=== PATIENT | female | born 1985 | race Caucasian/White ===

== ENCOUNTER 2017-05-05 18:04 | Emergency (ER) | payer BC ==
[~2017-05-05] VITALS: Ht 152.4 cm; Wt 60.0 kg
[~2017-05-05 18:04] MED LIST: FLUO20CA35 PO; FLUO40CA8 PO; MEDR150I IM; ONDA4TAB7 SL; PRAZ2CAP3 PO; SULF-183 PO
[2017-05-05 18:14] VITALS: TEMP 36.8; Ht 152.4 cm; Wt 60.0 kg
[2017-05-05] MEDS ORDERED: LEVOTAB6 PO (18:41)
[2017-05-05] MEDS ORDERED: AMPH30CA3 PO (18:41)
[2017-05-05] MEDS ORDERED: VENL75CA PO (18:41)
[2017-05-05] MEDS ORDERED: AMPH10TA2 PO (18:41)
[2017-05-05 18:44] LABS: BASO % 0.3 %; BASO ABS # 0.02 K/uL (0-0.2); COMPLETE YES; EOS % 1.1 %; HEMATOCRIT 37.8 % (37-47); IG% 0.2 %; LYMPH % 34.3 %; MEAN CELL VOLUME 87.3 fL (80-100); MEAN CORPUSCULAR HEMOGLOBIN 31.2 pg (25-34); MEAN CORPUSCULAR HGB CONC 35.7 g/dl (32-36); MEAN PLATELET VOLUME 9.1 fL (7.4-10.4); MONO % 8.1 %; PLATELET COUNT 255 K/uL (130-400); RED BLOOD COUNT 4.33 M/uL (4.2-5.4); WHITE BLOOD COUNT 6.42 K/uL (4.8-10.8)
--- NOTE | 2017-05-05 18:49 | EMERGENCY ROOM VISIT NOTE ---
History Report prepared by Melissa: Aldo Ferguson Under the Supervision of: Dr. Chidi Rasheed M.D. First contact with patient: 18:16 Chief Complaint: LEG PAIN,LEG INJURY Stated Complaint: BRUISE L LEG, PAIN ABOVE,BELOW W KNOT History of Present Illness The patient is a 32 year old female who presents to the Emergency Room with complaints of constant left leg pain for the past three days. The patient states that she got a bruise on her leg after getting a Yosef horse. The patient denies any trauma. She states that she has had Yosef horses in the past, but she has never had a bruise. The patient denies any foot pain, chest pain, shortness of breath, fevers, chills, abdominal pain, headache, and being . 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 She states that her last period was in February. Source of History: patient Onset: two days ago Position: leg (left) Quality: other (brusing) Timing: constant Associated Symptoms: No fevers, No chills, No headache, No chest pain, No SOB, No abdominal pain Review of Systems See HPI for pertinent positives & negatives. A total of 10 systems reviewed and were otherwise negative. Past Medical & Surgical Medical Problems: (1) [place] Teeth Removal Old medical records were reviewed. Nurse's notes were reviewed and I agree with. Family History Diabetes mellitus FH: cancer FH: gallbladder disease FH: lung disease Hypertension Kidney disease Kidney stones Social History Smoking Status: Current Every Day Smoker Alcohol Use: occasionally Marital Status: single Housing Status: lives with family Occupation Status: unemployed Current/Historical Medications Scheduled Amphetamine-Dextroamphetamine 10MG (Adderall 10MG), 10 MG PO QAM Amphetamine-Dextroamphetamine 30MG (Adderall Xr 30MG), 30 MG PO QAM Levonorgestrel-Ethinyl Estradi (Seasonique), 1 TAB PO DAILY Venlafaxine Hcl (Effexor Xr), 75 MG PO QAM Allergies Coded Allergies: No Known Allergies (Unverified , 09/23/11) Physical Exam Vital Signs Date Time Temp Pulse Resp B/P (MAP) Pulse Ox O2 Delivery O2 Flow Rate FiO2 05/05/17 18:14 36.8 98 16 142/89 100 Room Air Physical Exam General: Non-ill appearing young female in no acute distress. HEENT: Normal cephalic atraumatic. Pupils are equal round and reactive to light. Extraocular movements are intact. Oropharynx is pink with moist mucous membranes. No swelling of the mouth lips or tongue. Neck: Supple with a midline trachea. No meningeal signs or stiffness, no JVD or bruits. No Stridor. Chest: Clear to auscultation bilaterally. No wheezes or rhonchi. No increased work of breathing. Heart: regular rate and rhythm. Abdomen: Soft nontender, nondistended without rebound guarding or rigidity. Extremities: Left lower extremity has a bruise with some mild fullness centrally. No redness or warmth. Bruise is on the posterior leg just below the popliteal fossa. Neuro and vascularly intact in the foot. No cyanosis clubbing or edema. No calf tenderness or assymetry. Spine/Back. Non tender to palpation. No CVA tenderness Skin: Good turgor without rashes. Neurologic exam: Cranial nerves two through 12 are intact. Motor and sensation are intact and symmetrical throughout. Medical Decision & Procedures ER Provider Diagnostic Interpretation: Radiology results as stated below per my review and radiologist interpretation: ULTRASOUND LEFT LOWER EXTREMITY VENOUS CLINICAL HISTORY: Left leg pain and bruising. COMPARISON STUDY: No priors. TECHNIQUE: Real-time, grayscale, and color Doppler sonography of the deep veins of the left lower extremity was performed from the inguinal crease to the calf. Compression and augmentation were utilized. FINDINGS: There is no sonographic evidence of deep venous thrombosis identified in the left lower extremity. The common femoral, superficial femoral, and popliteal veins are patent and normally compressible. The greater saphenous vein and the profunda femoris vein at the junction with the common femoral vein are clear. The visualized calf veins are patent. IMPRESSION: There is no sonographic evidence of deep venous thrombosis identified in the left lower extremity. Electronically signed by: Nicolas Carey M.D. 05/05/2017 7:07 PM Dictated Date/Time: 05/05/2017 7:05 PM Laboratory Results 05/05/17 18:30 Red Blood Count 4.33, Mean Corpuscular Volume 87.3, Mean Corpuscular Hemoglobin 31.2, Mean Corpuscular Hemoglobin Concent 35.7, Mean Platelet Volume 9.1, Neutrophils (%) (Auto) 56.0, Lymphocytes (%) (Auto) 34.3, Monocytes (%) (Auto) 8.1, Eosinophils (%) (Auto) 1.1, Basophils (%) (Auto) 0.3, Neutrophils # (Auto) 3.60, Lymphocytes # (Auto) 2.20, Monocytes # (Auto) 0.52, Eosinophils # (Auto) 0.07, Basophils # (Auto) 0.02 05/05/17 18:30 Test 05/05/17 18:30 White Blood Count 6.42 K/uL (4.8-10.8) Red Blood Count 4.33 M/uL (4.2-5.4) Hemoglobin 13.5 g/dL (12.0-16.0) Hematocrit 37.8 % (37-47) Mean Corpuscular Volume 87.3 fL (80-100) Mean Corpuscular Hemoglobin 31.2 pg (25-34) Mean Corpuscular Hemoglobin Concent 35.7 g/dl (32-36) Platelet Count 255 K/uL (130-400) Mean Platelet Volume 9.1 fL (7.4-10.4) Neutrophils (%) (Auto) 56.0 % Lymphocytes (%) (Auto) 34.3 % Monocytes (%) (Auto) 8.1 % Eosinophils (%) (Auto) 1.1 % Basophils (%) (Auto) 0.3 % Neutrophils # (Auto) 3.60 K/uL (1.4-6.5) Lymphocytes # (Auto) 2.20 K/uL (1.2-3.4) Monocytes # (Auto) 0.52 K/uL (0.11-0.59) Eosinophils # (Auto) 0.07 K/uL (0-0.5) Basophils # (Auto) 0.02 K/uL (0-0.2) RDW Standard Deviation 40.7 fL (36.4-46.3) RDW Coefficient of Variation 12.6 % (11.5-14.5) Immature Granulocyte % (Auto) 0.2 % Immature Granulocyte # (Auto) 0.01 K/uL (0.00-0.02) Anion Gap 5.0 mmol/L (3-11) Est Creatinine Clear Calc Drug Dose 111.7 ml/min Estimated GFR () 140.4 Estimated GFR (Non- 121.1 BUN/Creatinine Ratio 10.7 (10-20) Calcium Level 8.5 mg/dl (8.5-10.1) Laboratory studies as stated above per my review. ED Course 1815: Past medical records reviewed. The patient was evaluated in room D6, and a complete history and physical examination were performed. 1914: Upon reevaluation, the patient is feeling well. I discussed the results and treatment plan with her. She verbalized agreement of the treatment plan. The patient was discharged home. Medical Decision Differentials include, but are not limited to; DVT, infection, and bruise. This patient comes in as described above. She was placed in room B6. She is having a bruise in her left posterior leg just below the popliteal fossa. This occurred after having a charley horse a few days ago. There is some palpable induration. They is no redness or warmth and the joint itself does not appear to be infected. She is neurologically and neurovascularly intact. Blood work was obtained and I also obtained an ultrasound. She has no chest pain or shortness of breath. She was reassessed frequently. She has no fever or white count to suggest infection. She has no acute electrolyte or metabolic abnormalities. Ultrasound shows no evidence of DVT. She has no evidence of compartment syndrome or cellulitis. It appears to be more of a bruise. She is to use ibuprofen and ice and return if: increasing pain or swelling, worsening symptoms, numbness or weakness, any new problems or concerns. She was happy with plan and discharged to home. Medication Reconcilliation Current Medication List: was personally reviewed by me Blood Pressure Screening Patient's blood pressure: Elevated blood pressure Blood pressure disposition: Elevated BP felt to be situational Impression Primary Impression: Leg pain Additional Impression: Superficial bruising of lower leg Scribe Attestation The scribe's documentation has been prepared under my direction and personally reviewed by me in its entirety. I confirm that the note above accurately reflects all work, treatment, procedures, and medical decision making performed by me. Departure Information Dispostion Home / Self-Care Referrals Wilbur Hidalgo D.O. (PCP) Forms HOME CARE DOCUMENTATION FORM, IMPORTANT VISIT INFORMATION Patient Instructions My [facility] Additional Instructions Rest. Return if: Increasing pain or swelling, numbness weakness, worsening of symptoms , any new problems or concerns Use ibuprofen 400 mg every 6 hours if needed for pain. Follow-up with your doctor this week if not better Problem Qualifiers
[2017-05-05 19:03] LABS: BUN/CREATININE RATIO 10.7 (10-20); CALCIUM 8.5 mg/dl (8.5-10.1); CREATININE 0.58 mg/dl (0.60-1.20); POTASSIUM 3.8 mmol/L (3.5-5.1)
--- NOTE | 2017-05-05 19:09 | DIAGNOSTIC IMAGING REPORT ---
ULTRASOUND LEFT LOWER EXTREMITY VENOUS CLINICAL HISTORY: Left leg pain and bruising. COMPARISON STUDY: No priors. TECHNIQUE: Real-time, grayscale, and color Doppler sonography of the deep veins of the left lower extremity was performed from the inguinal crease to the calf. Compression and augmentation were utilized. FINDINGS: There is no sonographic evidence of deep venous thrombosis identified in the left lower extremity. The common femoral, superficial femoral, and popliteal veins are patent and normally compressible. The greater saphenous vein and the profunda femoris vein at the junction with the common femoral vein are clear. The visualized calf veins are patent. IMPRESSION: There is no sonographic evidence of deep venous thrombosis identified in the left lower extremity. Electronically signed by: Nicolas Carey M.D. 05/05/2017 7:07 PM Dictated Date/Time: 05/05/2017 7:05 PM
[2017-05-05 19:24] LABS: PREG INTERNAL NEGATIVE QC NEG CLEAR BACKGROUND; PREG INTERNAL POSITIVE QC POS CONTROL LINE
[2017-05-05 19:31] VITALS: BP 128/76; PULSE 72; O2SAT 98
== END 2017-05-05 19:32 | disposition home or self-care (01) ==
LOC: C.EDB 18:05 → C.EDD 19:32
DX: M79.605 Pain in left leg (principal); R23.3 Spontaneous ecchymoses; F17.210 Nicotine dependence, cigarettes, uncomplicated; Z79.899 Other long term (current) drug therapy; Z83.3 Family history of diabetes mellitus; Z80.9 Family history of malignant neoplasm, unspecified; Z83.79 Family history of other diseases of the digestive system; Z83.6 Family history of other diseases of the respiratory system; Z84.1 Family history of disorders of kidney and ureter